=== PATIENT | male | born 1965 ===

== ENCOUNTER → 2016-10-02 | Outpatient (CLI) | payer OTHER ==
--- NOTE | 2016-10-03 09:22 | CR ---
EXAMINATION: Right foot HISTORY: Soft tissue disorder COMPARISON: None TECHNIQUE: 2 views FINDINGS: There is no acute osseous abnormality, dislocation, or fracture. Bone mineralization appea rs normal. Joint spaces are preserved. No significant soft tissue swelling. IMPRESSION: Grossly unremarkable right foot.
== END | disposition home or self-care (01) ==
LOC: MW.CHRC 13:34
PROVIDERS: ATTEND Family Medicine
DX: M79.89 Other specified soft tissue disorders (principal); I10 Essential (primary) hypertension
CPT/HCPCS: 73620-26-RT; 73620-RT

== ENCOUNTER → 2016-10-03 | Outpatient (CLI) | payer OTHER ==
[2016-10-03 11:15] LABS: CHLORIDE,CL 106 mmol/L (98-110); SODIUM,NA 143 mmol/L (136-146)
== END ==
LOC: MW.CHRC 09:58
PROVIDERS: ATTEND Family Medicine
DX: Z00.00 Encounter for general adult medical examination without abnormal findings (principal); I10 Essential (primary) hypertension
CPT/HCPCS: 36415; 80053; 80061; 83036; 84443